=== PATIENT | female | born 1950 | race Caucasian/White ===

== ENCOUNTER → 2021-09-21 09:40 | Outpatient (CLI) | payer MEDICARE, BC, SELFPAY ==
--- NOTE | ~2021-09-21 | MMUS_ITS ---
EXAMINATION: MM diagnostic naren RT w rick, US breast RT limited HISTORY: Possible right breast mass reported on outside 09/08/2021 mammogram TECHNIQUE: Additional 3-D tomosynthesis images of were performed and synthetic 2-D images were genera rajat. CAD analysis was submitted and interpreted. High resolution upper outer and lower-outer quadrant right breast ultrasound was performed. COMPARISON: 09/09/1999 22 cm [place], [place] bilateral screening mammogram FINDINGS: MAMMOGRAPHIC FINDINGS: An approximately 6 mm mass is suggested in the outer mid right breast at 9:00 (MLO spot Tomosynthesis image ). ULTRASOUND: At 9:00 8 cm from the nipple there is an irregular hypoechoic solid approximately 6 x 5.1 x 6.2 mm so lid lesion with minimal internal vascularity, mild posterior shadowing. The lesion is suspicious. Ult rasound-guided biopsy is recommended. IMPRESSION: 1. Irregular 6.2 mm hypoechoic solid lesion or with minimal internal vascularity and mild posterior s hadowing at 9:00 8 cm from nipple 2. Ultrasound-guided biopsy of right 9:00 lesion is recommended BI-RADS category 4, suspicious findings. Dr. Garcia telephoned the report and ultrasound-guided biopsy recommendation on 09/21/2021 at 1115 hours to Noe Woodall. Reviewed, dictated and finalized at location A. IMPRESSION: 1. Irregular 6.2 mm hypoechoic solid lesion or with minimal internal vascularit y and mild posterior shadowing at 9:00 8 cm from nipple 2. Ultrasound-guided biopsy of right 9:00 lesion is recommended BI-RADS category 4, suspicious findings. Dr. Garcia telephoned the report and ultrasound-guided biopsy recommendation on at 1115 hours to Andrew Woodall
== END ==
PROVIDERS: PCP Family Medicine; Visit Provider Family Medicine
DX: R92.8 Other abnormal and inconclusive findings on diagnostic imaging of breast (principal)
CPT/HCPCS: 76642; 77061; 77065; G0279